=== PATIENT | male | born 1990 | race African-American/Black ===

== ENCOUNTER 2018-03-27 15:26 | Inpatient (IN) | payer MEDICAID ==
[~2018-03-27] VITALS: Ht 180.3 cm; Wt 97.1 kg
[2018-03-27] MEDS ORDERED: SODIUM CHLORIDE 0.9% 1,000 ML IV ONE ×2 (15:45→16:34)
[2018-03-27 17:00] LABS: BASOPHILS % 0.7 % (0.0-2.0); EOSINOPHILS % 0.9 % (0.0-5.0); HEMATOCRIT. 51.3 % (42.0-52.0); HEMOGLOBIN. 17.9 g/dL (14.0-18.0); LYMPHOCYTES % 27.6 % (20.0-50.0); MEAN CORPUSCULAR HEMOGLOBIN 27.7 pg (28.0-32.0); MEAN CORPUSCULAR VOLUME 79.2 fL (80.0-94.0); MEAN PLATELET VOLUME 10.3 fl (7.4-10.4); MONOCYTES % 5.2 % (2.0-8.0); NEUTROPHILS % 65.6 % (40.0-76.0); PLATELET 289 x1000/uL (130-400); RED BLOOD CELL COUNT 6.48 mill/uL (4.7-6.1); RED CELL DISTRIBUTION WIDTH 12.8 % (11.6-14.6)
[2018-03-27 17:04] LABS: INR 1.1; PROTHROMBIN TIME 10.7 sec (9.1-11.1)
[2018-03-27 17:06] LABS: CHLORIDE 94 mEq/L (98-107)
[2018-03-27 17:13] LABS: AMYLASE 43 IU/L (25-115); BETA HYDROXYBUTYRATE 5.2 mMol/L (0.0-0.3)
[2018-03-27 18:06] LABS: CLARITY URINE CLEAR (CLEAR); COLOR URINE YELLOW (YELLOW); KETONES URINE 4+ (NEGATIVE); LEUKOCYTE ESTERASE URINE NEGATIVE (NEGATIVE); NITRITE URINE NEGATIVE (NEGATIVE); OCCULT BLOOD URINE TRACE (NEGATIVE); PROTEIN URINE 2+ (NEGATIVE); SPECIFIC GRAVITY URINE 1.036 (1.005-1.030); UROBILINOGEN URINE 0.2 E.U./dL (0.2-1.0)
[2018-03-27] MEDS ORDERED: INSULIN REGULAR (DRIP) 100 UNITS in SODIUM CHLORIDE 0.9% 99 ML IV SCH (18:45)
[2018-03-27] MEDS ORDERED: ONDANSETRON HCL 4MG/2ML VIAL IV PRN (19:15)
[2018-03-27] MEDS ORDERED: DOCUSATE SODIUM 100MG CAPSULE PO PRN (19:15)
[2018-03-27] MEDS ORDERED: DIPHENHYDRAMINE 50MG/ML VIAL IV PRN (19:15)
[2018-03-27] MEDS ORDERED: NA PHOS,M-B/NA PHOS,DI-BA ENEMA 118ML PR PRN (19:15)
[2018-03-27] MEDS ORDERED: GUAIFENESIN 200MG/10ML SUGAR FREE UDC PO PRN (19:15)
[2018-03-27] MEDS ORDERED: IPRATROPIUM/ALBUTEROL 0.5-3(2.5)MG/3ML NEB INH PRN (19:15)
[2018-03-27] MEDS ORDERED: ACETAMINOPHEN 325MG TABLET PO PRN (19:15)
[2018-03-27] MEDS ORDERED: LORAZEPAM 2MG/ML CPJ IV PRN (19:15)
[2018-03-27] MEDS ORDERED: MAGNESIUM/ALUMINUM HYDROXIDE/SIMETHICONE 30ML UDC PO PRN (19:15)
[2018-03-27] MEDS ORDERED: CLONIDINE 0.1MG TABLET PO PRN (19:15)
[2018-03-27] MEDS ORDERED: HYDROMORPHONE HCL/PF 2MG/ML CPJ IV PRN (19:15)
[2018-03-27] MEDS ORDERED: HYDROCODONE/ACETAMINOPHEN 5/325MG TABLET PO PRN (19:15)
[2018-03-27] MEDS: SODIUM CHLORIDE 0.45% 1,000 ML IV SCH (21:20)
[2018-03-28 00:11] LABS: CHLORIDE 101 mEq/L (98-107)
[2018-03-28 04:15] VITALS: BP_SYST 155; BP_DIAS 73; BP_DIAS 88
[2018-03-28 04:30] VITALS: BP 155/88
[2018-03-28 05:00] VITALS: BP 142/80
[2018-03-28 05:30] VITALS: BP 132/76
[2018-03-28] MEDS ORDERED: DEXTROSE 50% WATER 50ML SYRINGE IV PRN (05:30)
[2018-03-28] MEDS ORDERED: INSULIN REGULAR (DRIP) 100 UNITS in SODIUM CHLORIDE 0.9% 100 ML IV SCH (06:00)
[2018-03-28] MEDS ORDERED: BLOOD SUGAR DIAGNOSTIC STRIP TEST SCH (06:30)
[2018-03-28] MEDS: SODIUM CHLORIDE 0.45% 1,000 ML IV SCH (06:41)
[2018-03-28] MEDS ORDERED: INSULIN LISPRO 100 UNITS/ML SUBCUT SCH (07:00)
[2018-03-28] MEDS ORDERED: ENOXAPARIN 40MG/0.4ML SYR SUBCUT SCH (09:00)
[2018-03-28] MEDS ORDERED: ASPIRIN 81MG EC TABLET PO SCH (09:00)
== END 2018-03-28 07:55 | disposition left against medical advice (07) | DRG 420 ==
LOC: ER 20:20 → MICUNO 20:21 → ENRESERV 03-28 03:08
PROVIDERS: ADMIT Internal Medicine; ATTEND Internal Medicine
DX: E11.10 Type 2 diabetes mellitus with ketoacidosis without coma (principal); E86.0 Dehydration; I10 Essential (primary) hypertension; J45.909 Unspecified asthma, uncomplicated; Z83.3 Family history of diabetes mellitus
CPT/HCPCS: 36415; 71045; 80048; 80053; 81003; 82010; 82150; 82962; 83690; 84484; 85025; 85610; 93005; 96361; 96365; 96366; 99285; J1815; J7030; J7050

== ENCOUNTER 2018-03-28 13:56 | Emergency (ER) | payer MEDICAID ==
[~2018-03-28] VITALS: Ht 180.3 cm; Wt 81.0 kg
[2018-03-28] MEDS ORDERED: SODIUM CHLORIDE 0.9% 1,000 ML IV ONE (14:20)
[2018-03-28 16:53] LABS: BASOPHILS % 0.8 % (0.0-2.0); EOSINOPHILS % 2.8 % (0.0-5.0); HEMATOCRIT. 44.4 % (42.0-52.0); HEMOGLOBIN. 15.4 g/dL (14.0-18.0); LYMPHOCYTES % 29.1 % (20.0-50.0); MEAN CORPUSCULAR HEMOGLOBIN 27.6 pg (28.0-32.0); MEAN CORPUSCULAR VOLUME 79.6 fL (80.0-94.0); MEAN PLATELET VOLUME 9.7 fl (7.4-10.4); NEUTROPHILS % 61.3 % (40.0-76.0); PLATELET 207 x1000/uL (130-400); RED BLOOD CELL COUNT 5.57 mill/uL (4.7-6.1); RED CELL DISTRIBUTION WIDTH 13.2 % (11.6-14.6)
[2018-03-28 17:07] LABS: CHLORIDE 99 mEq/L (98-107)
[2018-03-28 17:22] LABS: BETA HYDROXYBUTYRATE 4.2 mMol/L (0.0-0.3)
[2018-03-28 18:13] VITALS: BP 137/93
== END 2018-03-28 18:15 | disposition home or self-care (01) ==
LOC: ER 13:56
DX: E11.65 Type 2 diabetes mellitus with hyperglycemia (principal); J45.909 Unspecified asthma, uncomplicated
CPT/HCPCS: 36415; 80053; 82010; 82962; 85025; 96360; 99284; J7030; Z7610